=== PATIENT | female | born 1995 | race Two or more races ===

== ENCOUNTER 2018-11-09 21:36 | Emergency (ER) | payer MEDICAID ==
[~2018-11-09] VITALS: Ht 152.4 cm; Wt 77.6 kg
[2018-11-09 22:31] LABS: Urine WBC None Seen /hpf (0 - 5)
[2018-11-09 22:51] LABS: Urine Amorphous Crystal FEW /hpf (None Seen); Urine Bacteria NONE SEEN /hpf (None Seen); Urine Blood Negative /uL (Negative); Urine Specific Gravity 1.024 (1.001-1.035)
[2018-11-10 04:01] LABS: Albumin 3.2 g/dL (3.4-5.0); Anion Gap 6 (5-15); Blood Urea Nitrogen 12 mg/dL (7-18); Calcium 8.3 mg/dL (8.5-10.1); Carbon Dioxide 24 mmol/L (21-32); Chloride 110 mmol/L (98-107); Glucose 84 mg/dL (74-106); Magnesium 2.2 mg/dL (1.6-2.6); Potassium 3.6 mmol/L (3.5-5.1); Sodium 140 mmol/L (136-145)
[2018-11-10 04:05] LABS: Basophils # (auto) 0.1 uL; Basophils % (auto) 0.9 % (0.0-2.0); Eosinophils # (auto) 0.2 uL; Hemoglobin 13.3 g/dL (12.2-16.2); Red Cell Distribution Width 14.2 % (11.8-14.3)
[2018-11-10 04:07] LABS: Eosinophils % (auto) 2.1 % (0.0-7.0); Hematocrit 39.7 % (36.0-46.0); Lymphocytes # (auto) 2.9 uL; Lymphocytes % (auto) 32.6 % (10.0-50.0); Mean Corpuscular Hemoglobin 27.3 pg (28.0-32.0); Mean Corpuscular Hgb Conc. 33.5 g/dL (32.0-36.0); Mean Corpuscular Volume 81.4 fL (80.0-100.0); Monocytes # (auto) 0.7 uL; Monocytes % (auto) 8.1 % (0.0-12.0); Neutrophils % (auto) 56.3 % (37.0-80.0); Platelet Count (auto) 274 10^3/uL (140-450); Red Blood Cells 4.88 10^6/uL (4.0-5.20); White Blood Cell 8.8 10^3/uL (4.4-10.8)
[2018-11-10 04:09] LABS: Alanine Aminotransferase 30 U/L (13-56); Alkaline Phosphatase 43 U/L (45-117); Aspartate Aminotransferase 17 U/L (15-37); BUN/Creatinine Ratio 22.2; Bilirubin, Total 0.3 mg/dL (0.2-1.0); GFR African American 178 mL/min; GFR Non-African American 147 mL/min; Total Protein 7.2 g/dL (6.4-8.2)
[2018-11-10 04:50] LABS: INR 0.91 (0.9-1.15); Partial Thromboplastin Time 27.1 sec (23.78-33.04); Prothrombin Time 9.8 sec (9.27-12.13)
[2018-11-10] MEDS ORDERED: ASPirin 81 mg TAB PO ONE (05:45)
[2018-11-10 07:13] VITALS: BP 151/91
== END 2018-11-10 07:19 | disposition home or self-care (01) ==
LOC: ER 21:41
DX: R07.89 Other chest pain (principal); E03.9 Hypothyroidism, unspecified
CPT/HCPCS: 36415; 71046; 80053; 81001; 81025; 83735; 83880; 84443; 84484; 85025; 85610; 85730; 93005

== ENCOUNTER 2018-12-17 07:07 | Emergency (ER) | payer MEDICAID ==
[~2018-12-17] VITALS: Ht 152.4 cm; Wt 77.1 kg
[2018-12-17 07:43] LABS: Urine Bacteria NONE SEEN /hpf (None Seen); Urine Blood Negative /uL (Negative); Urine Mucus FEW (None Seen); Urine Specific Gravity 1.023 (1.001-1.035); Urine WBC 1 /hpf (0 - 5)
[2018-12-17] MEDS ORDERED: SODIUM CHLORIDE 0.9% 1,000 ML IV ONE (09:00)
[2018-12-17 09:49] LABS: Basophils # (auto) 0.1 uL; Eosinophils # (auto) 0 uL; Mean Corpuscular Hgb Conc. 33.3 g/dL (32.0-36.0); Mean Corpuscular Volume 79.2 fL (80.0-100.0); White Blood Cell 12.2 10^3/uL (4.4-10.8)
[2018-12-17 09:50] LABS: Basophils % (auto) 0.5 % (0.0-2.0); Eosinophils % (auto) 0.1 % (0.0-7.0); Hematocrit 40.9 % (36.0-46.0); Hemoglobin 13.6 g/dL (12.2-16.2); Lymphocytes # (auto) 0.9 uL; Lymphocytes % (auto) 7.6 % (10.0-50.0); Mean Corpuscular Hemoglobin 26.3 pg (28.0-32.0); Monocytes # (auto) 0.9 uL; Monocytes % (auto) 7.7 % (0.0-12.0); Neutrophils # (auto) 10.2 uL; Neutrophils % (auto) 84.1 % (37.0-80.0); Platelet Count (auto) 221 10^3/uL (140-450); Red Blood Cells 5.16 10^6/uL (4.0-5.20); Red Cell Distribution Width 14.1 % (11.8-14.3)
[2018-12-17 11:02] LABS: Albumin 3.4 g/dL (3.4-5.0); Calcium 8.2 mg/dL (8.5-10.1); Potassium 3.4 mmol/L (3.5-5.1)
[2018-12-17 11:05] LABS: BUN/Creatinine Ratio 10.9; Bilirubin, Total 0.9 mg/dL (0.2-1.0); Total Protein 7.6 g/dL (6.4-8.2)
[2018-12-17 11:20] VITALS: BP 102/72
== END 2018-12-17 13:12 | disposition home or self-care (01) ==
LOC: ER 07:07
DX: R55 Syncope and collapse (principal)
CPT/HCPCS: 36415; 70450; 80053; 81001; 82962; 84702; 85025; 94761; 96360

== ENCOUNTER → 2019-02-25 | Outpatient (CLI) | payer MEDICAID | END | disposition home or self-care (01) | LOC: Rad HDHVI 10:47 | PROVIDERS: ATTEND Internal Medicine Cardiovascular Disease | DX: R07.89 Other chest pain (principal) | CPT/HCPCS: 93306 ==

== ENCOUNTER → 2019-03-16 | Outpatient (CLI) | payer MEDICAID ==
[~2019-03-16] VITALS: Ht 152.4 cm; Wt 77.1 kg
== END | disposition home or self-care (01) ==
LOC: Rad HDHVI 09:19
PROVIDERS: ATTEND Internal Medicine Cardiovascular Disease
DX: R07.89 Other chest pain (principal); F43.9 Reaction to severe stress, unspecified; F41.9 Anxiety disorder, unspecified; R63.8 Other symptoms and signs concerning food and fluid intake
CPT/HCPCS: 93017

== ENCOUNTER → 2022-05-13 | Emergency (ER) | payer MEDICAID, OTHER ==
[~2022-05-13] VITALS: Ht 152.4 cm; Wt 77.0 kg
[~2022-05-13] MED LIST: HYDROcodone-ACET 5/325MG TAB PO ONE
[2022-05-14 01:44] VITALS: BP 119/82
== END | disposition home or self-care (01) ==
LOC: EDUNIT# 18:49 → EDBD 18:56 → ER 19:06
DX: S16.1XXA Strain of muscle, fascia and tendon at neck level, initial encounter (principal); S80.812A Abrasion, left lower leg, initial encounter; V43.62XA Car passenger injured in collision with other type car in traffic accident, initial encounter; Y93.89 Activity, other specified; Y92.89 Other specified places as the place of occurrence of the external cause; Y99.8 Other external cause status
CPT/HCPCS: 70450; 72125; 73590

== ENCOUNTER 2022-10-01 20:54 | Emergency (ER) | payer MEDICAID, OTHER ==
[~2022-10-01] VITALS: Ht 154.9 cm; Wt 80.2 kg
[2022-10-01 22:23] LABS: Urine Bacteria FEW /hpf (None Seen); Urine Blood 3+ /uL (Negative); Urine Specific Gravity 1.008 (1.001-1.035); Urine Sperm PRESENT /hpf (None Seen); Urine WBC 13 /hpf (0 - 5)
[2022-10-02] MEDS ORDERED: CEPH500C PO (00:02)
[2022-10-02 00:21] VITALS: BP 138/85
== END 2022-10-02 00:24 | disposition home or self-care (01) ==
LOC: ER 20:57
DX: O23.42 Unspecified infection of urinary tract in pregnancy, second trimester (principal); N39.0 Urinary tract infection, site not specified; O20.8 Other hemorrhage in early pregnancy; Z3A.14 14 weeks gestation of pregnancy
CPT/HCPCS: 36415; 76805; 81001; 84702